=== PATIENT | female | born 1980 | race Caucasian/White ===

== ENCOUNTER 2021-07-06 22:01 | Emergency (ER) | payer OTHER, SELFPAY ==
--- NOTE | ~2021-07-06 | CT_ITS ---
EXAMINATION: CT abdomen pelvis w con DATE: 07/07/2021 00:01 INDICATION: Right upper quadrant abdominal pain and nausea TECHNIQUE: Computed tomography (CT) of the abdomen and pelvis was performed with 100 mL Omnipaque-300 intravenous contrast. Automated exposure control and iterative reconstruction technique were employe d. The dose-length product was 972.17 mGy-cm. COMPARISON: None FINDINGS: Lung bases are clear. Heart size is normal. No pericardial or pleural effusion. Bilateral breast impl ants. Prominent diffuse hepatic steatosis with focal sparing along the gallbladder fossa. Gallbladder , spleen, pancreas, bilateral adrenal glands and kidneys are normal. Fluid throughout the otherwise n ormal-appearing colon consistent with diarrhea. Small bowel and appendix are normal. The decompressed bladder an portions of the deep pelvis are partially obscured by dense metallic streak artifact from bilateral total hip arthroplasties. The uterus is not identified and has likely been surgically rese cted. No free intraperitoneal gas or fluid. No pathologically enlarged abdominal or pelvic lymphadeno nico. IMPRESSION: 1. Nonspecific fluid throughout the colon consistent with diarrhea. Correlate clinically for enteriti s. 2. Diffuse hepatic steatosis. Reviewed, dictated and finalized at location A. IMPRESSION: 1. Nonspecific fluid throughout the colon consistent with diarrhea. Correlate c linically for enteritis. 2. Diffuse hepatic steatosis.
[2021-07-06 22:15] VITALS: BP 150/82; PULSE 112; RESP 18; TEMP 37.2; O2SAT 100
--- NOTE | 2021-07-06 22:27 | ECG_ITS ---
Measurements Intervals [place] Rate: 112 P: 44 IA: 146 QRS: 40 QRSD: 68 T: -20 QT: 336 QTc: 460 Interpretive Statements SINUS TACHYCARDIA POSSIBLE LEFT ATRIAL ENLARGEMENT BORDERLINE ST-T WAVE ABNORMALITY- ANTEROLAT/INF LEADS BASELINE ARTIFACT- V2 ABNORMAL ECG Electronically Signed On 07-07-2021 6:38:16 CDT by Kobe Gomez D.O.
[2021-07-06 22:42] LABS: Basophils Absolute Auto 0.02 K/mm3 (0.00-0.10); Basophils Percent Auto 0.2 % (0.0-1.0); Eosinophils Absolute Auto 0.12 K/mm3 (0.02-0.50); Hematocrit 39.5 % (35.0-49.0); Hemoglobin 13.2 g/dL (12.0-15.0); Immature Granulocyte Absolute 0.03 K/mm3 (0.00-0.00); Immature Granulocyte Percent A 0.3 % (0.0-0.0); Lymphocytes Absolute Auto 3.14 K/mm3 (1.10-4.50); Lymphocytes Percent Auto 27.4 % (18.0-42.0); Mean Corpuscular HGB Conc 33.4 g/dL (32.0-36.0); Mean Corpuscular Hemoglobin 29.5 pg (27.0-31.0); Mean Corpuscular Volume 88.4 fL (78.0-102.0); Mean Platelet Volume 9.3 fl (9.2-11.8); Monocytes Absolute Auto 0.64 K/mm3 (0.10-0.90); Monocytes Percent Auto 5.6 % (2.0-11.0); Neutrophils Absolute Auto 7.5 K/mm3 (1.7-7.2); Neutrophils Percent Auto 65.5 % (50.0-70.0); Platelet Count Result 245 K/mm3 (150-420); Red Blood Count 4.47 M/mm3 (4.20-5.40); White Blood Count 11.5 K/mm3 (4.8-10.8)
--- NOTE | 2021-07-06 22:42 | ED.ABDPAIN ---
HPI - Abdominal Pain General Chief Complaint: Abdominal Pain Stated Complaint: abd pain,side pain Source: patient Mode of arrival: ambulatory Limitations: no limitations History of Present Illness HPI narrative: This is a 40-year-old female with a history of breast cancer, has had history of hysterectomy, the patient presents with a history of abdominal discomfort located right upper quadrant currently it is intermittent and prior to arrival earlier in the day around 7 in the evening she had abdominal pain localized in the right upper quadrant that she rated about 7/10, currently there is some mild nausea her pain level she rates at a 3/10 with no fever chills no dysuria no flank pain no chest pain no shortness of breath. MD elicited complaint: abdominal pain Onset (ago): hour(s) Pain Consistency: intermittent Location: RUQ Severity: mild Pain scale (0-10): 3 Quality: aching Radiation: RUQ and epigastric Exacerbating factors: nothing Relieving factors: nothing Related Data Home Medications Medication Instructions Recorded Confirmed famotidine [Pepcid] 40 mg PO DAILY 07/06/21 07/06/21 metoprolol succinate 50 mg PO DAILY 07/06/21 07/06/21 tamoxifen 20 mg PO DAILY 07/06/21 07/06/21 Allergies Allergy/AdvReac Type Severity Reaction Status Date / Time acetaminophen [From Percocet] Allergy Itching Verified 07/06/21 22:31 amoxicillin Allergy Hives Verified 07/06/21 22:29 azithromycin [From Zithromax] Allergy Other Verified 07/06/21 22:31 oxycodone [From Percocet] Allergy Itching Verified 07/06/21 22:31 Sulfa (Sulfonamide Allergy Swelling Verified 07/06/21 22:31 Antibiotics) of Lip/Tongue/Throat Review of Systems Review of Systems: All systems reviewed & are unremarkable except as noted in HPI and below PMFSH Past Medical History Medical History History of breast cancer Exam Const: General: no acute distress and alert Orientation/consciousness: patient oriented x3 HENMT: Head: normal to inspection Eyes: Conjunctivae: conjunctivae normal Pupils: Equal, round and reactive pupils present Neck: Neck: normal visual inspection Chest: Chest palpation & inspection: normal inspection of the chest Cardio: Rate: regular rate Rhythm: regular rhythm GI: GI Palp: Yes Soft to palpation and Yes Tenderness to palpation present (GI) : General: Yes no CVA tenderness Urinary Catheter: Urinary Catheter: patent and draining Back/Spine/Pelvis: Back: no CVA tenderness Skin: General skin exam: normal color Rashes: no rashes Neuro: General: patient oriented x3 and moves all extremities Extrem: General: normal to inspection Psych: Mental Status: mental status grossly normal Affect: normal affect Course Course Emergency Course: patient receive IV fluids, IV Toradol 30mg and Zofran, CT scan of the abdomen and pelvis reviewed with patient as well as blood work. MDM - Abdominal Pain Lab Data Result diagrams: 07/06/21 22:39 07/06/21 22:39 Labs: Lab Results 07/06/21 07/06/21 07/06/21 Range/Units 22:39 22:39 22:39 WBC Pending RBC Pending Hgb Pending Hct Pending MCV Pending MCH Pending MCHC Pending RDW Pending Plt Count Pending MPV Pending Immature Gran % (Auto) Pending Neut % (Auto) Pending Lymph % (Auto) Pending [place] % (Auto) Pending Eos % (Auto) Pending Baso % (Auto) Pending Lymph # (Auto) Pending [place] # (Auto) Pending Eos # (Auto) Pending Baso # (Auto) Pending Abs Immat Gran (auto) Pending Absolute Neuts (auto) Pending Absolute Nucleated RBC Pending Nucleated RBC % Pending PT Pending INR Pending APTT Pending Sodium Pending Potassium Pending Chloride Pending Carbon Dioxide Pending Anion Gap Pending BUN Pending Creatinine Pending
[2021-07-06 22:56] LABS: INR 0.9; Partial Thromboplastin Time 26.4 SEC (23.90-30.70); Prothrombin Time 9.9 Seconds (9.50-12.10)
[2021-07-06] MEDS: KETOROLAC 30 MG/ML VIAL (*BKC) IV PUSH (22:56)
[2021-07-06] MEDS: SODIUM CHLORIDE 0.9% IV 1,000 ML 999 ML IV CONT (22:57)
[2021-07-06] MEDS: ONDANSETRON INJ 4 MG/2 ML VIAL IV PUSH (22:57)
[2021-07-06 23:28] LABS: Alanine Aminotransferase 60 U/L (6-35); Albumin Level 4.4 g/dL (3.5-5.1); Alkaline Phosphatase 111 U/L (38-126); Anion Gap 10 mmol/L (8-16); Aspartate Amino Transferase 45 U/L (14-36); Bilirubin,Total 0.3 mg/dL (0.2-1.3); Blood Urea Nitrogen 15 mg/dL (7-17); Calcium 9.1 mg/dL (8.4-10.2); Carbon Dioxide 23 mmol/L (22-30); Chloride 108 mmol/L (98-107); Estimated Glomerular Filt Rate > 60; Glucose 109 mg/dL (65-110); Lipase 96 U/L (23-300); Osmolality Calculated 293 mOsm/kg (285-295); Potassium 3.9 mmol/L (3.4-5.0); Sodium 141 mmol/L (137-145)
[2021-07-06 23:35] LABS: Add Urine Microscopic? YES; Appearance Urine Clear (Clear); Bilirubin Urine Negative (Negative); Blood Urine Negative (Negative); Color Urine Yellow (Yellow); Glucose Urine UA Negative (Negative); Ketones Urine 1+ (Negative); Leukocyte Esterase Ur Negative (Negative); Nitrate Urine Negative (Negative); Protein Urine Negative (Negative); Specific Grav Ur >= 1.030 (1.010-1.020); Urobilinogen Urine 0.2 mg/dL (0.2-1.0); pH Urine 5.5 (5.0-8.0)
[2021-07-06 23:43] LABS: Urine Pregnancy Test Negative
[2021-07-06 23:44] LABS: Bacteria Urine Trace /hpf; Mucus Urine Few /lpf; Pregnancy On Board Control Positive; RBC Urine 0-2 /hpf (0-2); Renal Epithelial Cells Urine Rare /hpf; Squamous Epithelial Cell Urine Rare /hpf (Few); WBC Urine 0-3 /hpf (0-3)
[2021-07-06 23:50] LABS: Troponin I < 0.012 ng/mL (0.000-0.034)
[2021-07-07] MEDS: CIPROFLOXACIN 400 MG/D5W 200ML 200 ML 200 MG IVPB (01:39)
[2021-07-07] MEDS: metroNIDAZOLE 500 MG/ISO 100ML 500 MG/100 ML BAG 100 MG IVPB (02:42)
[2021-07-07 04:12] VITALS: BP 123/62; PULSE 88; RESP 17; TEMP 36.6; O2SAT 98
== END 2021-07-07 04:13 | disposition home or self-care (01) ==
PROVIDERS: Emergency Provider Emergency Medicine
DX: K52.9 Noninfective gastroenteritis and colitis, unspecified (principal); K76.0 Fatty (change of) liver, not elsewhere classified
CPT/HCPCS: 36415; 74177; 80053; 81001; 81025; 83605; 83690; 84484; 85025; 85610; 85730; 93005; 96361; 96365; 96367; 96374; 96375; 99284; J0744; J1885; J2405; J7030; Q9967

== ENCOUNTER 2021-11-23 19:30 | Emergency (ER) | payer OTHER, SELFPAY ==
--- NOTE | 2021-11-23 19:40 | ED.SKABFB ---
HPI - Skin/Abscess/Foreign Bdy General Chief complaint: Skin/Abscess/Foreign Body Stated complaint: body rash Time Seen by Provider: 11/23/21 19:42 Source: patient Mode of arrival: ambulatory Limitations: no limitations History of Present Illness HPI narrative: 41-year-old female presented for complaint of hives to stomach, onset 1700. It started as a burning sensation. She denies changes to lotion, soap, detergent, diet or medications. States she noticed 1 small hive to the right lower leg which has improved. Anything for symptoms. She denies lip, tongue, or throat swelling, shortness of breath or wheezing. She endorses itching, denies pain or drainage. Of note, she reports 1 week ago she leaned across the car seat causing pressure against her right breast implant, which caused pain to the right chest wall. She endorses the pain has persisted, worse with sneezing or coughing, also hurts with lifting the right arm. She has not yet followed up with plastic surgeon regarding this. She has not taken anything for pain. She denies change in size or shape to the implant. History of breast cancer, status post bilateral mastectomy. Related Data Home Medications Medication Instructions Recorded Confirmed famotidine 40 mg tablet (Pepcid) 40 mg PO DAILY 07/06/21 11/23/21 metoprolol succinate 50 mg 50 mg PO DAILY 07/06/21 11/23/21 tablet,extended release 24 hr tamoxifen 20 mg tablet 20 mg PO DAILY 07/06/21 11/23/21 cholecalciferol (vitamin D3) 50 50 mcg PO DAILY 11/23/21 11/23/21 mcg (2,000 unit) capsule (Vitamin D3) Allergies Allergy/AdvReac Type Severity Reaction Status Date / Time acetaminophen [From Percocet] Allergy Itching Verified 11/23/21 19:36 amoxicillin Allergy Hives Verified 11/23/21 19:36 azithromycin [From Zithromax] Allergy Other Verified 11/23/21 19:36 oxycodone [From Percocet] Allergy Itching Verified 11/23/21 19:36 Sulfa (Sulfonamide Allergy Swelling Verified 11/23/21 19:36 Antibiotics) of Lip/Tongue/Throat Review of Systems Review of Systems: CONSTITUTIONAL: Denies body aches, fever, chills, or sweats. EYES: Denies visual changes, redness, or discharge. ENT: Denies rhinorrhea, congestion CARDIOVASCULAR: Denies chest pain, palpitations, or edema. RESPIRATORY: Denies cough or dyspnea. GASTROINTESTINAL: Denies abdominal pain, nausea, vomiting, or diarrhea. SKIN: reports rash MUSCULOSKELETAL: reports right chest wall pain; Denies back pain, joint pain, or myalgia. NEUROLOGIC: Denies headache, numbness, tingling, or weakness. [facility] Past Medical History Medical History History of breast cancer Comments At time of signature, I have reviewed and agree with nursing past medical, surgical, social and family history unless otherwise noted. Please see nursing chart for further information. There is no relevant family history pertinent to the presenting complaint Exam Narrative: GENERAL: Well-appearing EYES: conjunctivae clear, and EOMI. ENT: Mucous membranes moist. Oropharynx without edema, erythema or lesions. NECK: Supple. No lymphadenopathy CHEST: Clear to auscultation. Bilateral breasts examined, no bruising, redness, lesions, or significant discrepancy in size; right lateral breast with mild irregular contour HEART: Regular rate and rhythm. SKIN: Warm, dry. Erythematous rash across abdomen, c/w urticaria; nontender no drainage NEURO: Alert and oriented x3. Course Course Emergency Course: Patient is aware of diagnosis, understands and agrees to treatment plan. Anticipatory guidance given. Patient agrees to follow-up as directed and is aware of reasons to seek care at the emergency department. Portions of this record may have been created with voice recognition software Level of Care: Express Care Visit Vital Signs Vital signs: Reviewed MDM - Skin/Abscess/Foreign Bdy MDM Narrative Medical decision britney
[2021-11-23 19:42] VITALS: BP 156/76; PULSE 103; RESP 16; TEMP 37.1; O2SAT 99
== END 2021-11-23 19:56 | disposition home or self-care (01) ==
PROVIDERS: Emergency Provider Nurse Practitioner Family
DX: L50.9 Urticaria, unspecified (principal); R07.89 Other chest pain; Z85.3 Personal history of malignant neoplasm of breast; Z90.13 Acquired absence of bilateral breasts and nipples
CPT/HCPCS: 99213; G0463

== ENCOUNTER 2022-05-01 19:14 | Emergency (ER) | payer BC, SELFPAY ==
--- NOTE | ~2022-05-01 | XR_ITS ---
EXAMINATION: XR chest 2V Exam Date/Time: 05/01/2022 19:25 CDT HISTORY: COUGH, CONGESTION, SOB Comparison: None available. RESULT: Lines, tubes, and devices: Bilateral breast augmentation. Surgical. Clips project over the anterior mediastinum in the lateral view, likely within lateral soft tissues. Lungs and pleura: Scattered reticulonodular opacities, cuffing. Cardiomediastinal silhouette: Stable. Other: No acute osseous or upper abdominal finding. Rounded calcification over the right upper quadr ant may represent a gallstone. IMPRESSION: Pulmonary opacities may represent bronchiolitis, as can be seen with atypical infection, asthma, aspi ration, and small airways disease. Reviewed, dictated and finalized at location K. IMPRESSION: Pulmonary opacities may represent bronchiolitis, as can be seen with atypical i nfection, asthma, aspiration, and small airways disease.
[2022-05-01 19:31] VITALS: BP 137/89; PULSE 123; RESP 16; TEMP 37.6; O2SAT 100
--- NOTE | 2022-05-01 19:37 | ED.URI ---
HPI - URI/Sore Throat General Chief Complaint: Upper Respiratory Infection Stated Complaint: congestion,shortness of breath,cough Source: patient and RN notes reviewed History of Present Illness HPI Narrative: 41-year-old female presents to urgent care with complaints a productive cough, shortness of breath, and congestion. patient states her congestion started on Saturday but this afternoon her symptoms worsened. Patient reports history of pneumonia. Denies any fevers, chills, vomiting, or abdominal pain. Some parts of this dictation were generated by voice recognition software and may contain typographical and/or grammatical inaccuracies. Related Data Allergies Allergy/AdvReac Type Severity Reaction Status Date / Time acetaminophen [From Percocet] Allergy Itching Verified 05/01/22 19:42 amoxicillin Allergy Hives Verified 05/01/22 19:42 azithromycin [From Zithromax] Allergy Other Verified 05/01/22 19:42 oxycodone [From Percocet] Allergy Itching Verified 05/01/22 19:42 Sulfa (Sulfonamide Allergy Swelling Verified 05/01/22 19:42 Antibiotics) of Lip/Tongue/Throat Review of Systems Review of Systems: CONSTITUTIONAL: Denies fever, chills, or sweats. EYES: Denies visual changes, redness, or discharge. ENT: Congestion CARDIOVASCULAR: Denies chest pain, palpitations, or edema. RESPIRATORY: cough and dyspnea. GASTROINTESTINAL: Denies abdominal pain, nausea, vomiting, or diarrhea. GENITOURINARY: Denies dysuria or hematuria. SKIN: Denies rash or itching. MUSCULOSKELETAL: Denies back pain, joint pain, or myalgia. NEUROLOGIC: Denies headache, numbness, or weakness. [facility] Past Medical History Medical History History of breast cancer Comments At the time of my signature, I reviewed and agree with the nursing past medical, surgical, social, and family history. There is no relevant family history pertinent to the patient complaint. Exam Narrative: GENERAL: This is a well-nourished, well-developed patient, in no apparent distress. HEAD: normocephalic, atraumatic. EYES: PERRL. Sclera clear/white. Vision is grossly intact. EARS: External ears normal, auditory canals clear and without drainage, TMs normal without perforation. Hearing grossly intact. NOSE: External nose normal with no obvious nasal discharge, nares without redness, no rhinorrhea. THROAT: Mucous membranes moist, posterior pharynx clear. NECK: Neck supple, non-tender without lymphadenopathy, masses or thyromegaly. CARDIOVASCULAR: tachycardic and rhythm without murmurs, gallops, or rubs. RESPIRATORY: rhonchi bilaterally. SKIN: warm, intact with no suspicious lesions or rash, good texture and turgor. NEURO: awake, alert, and oriented to person, place and time. There were no obvious focal neurologic abnormalities. Course Course Level of Care: Express Care Visit Vital Signs Vital signs: Vital Signs Temperature 99.7 F H 05/01/22 19:31 Pulse Rate 123 H 05/01/22 19:31 Respiratory Rate 16 05/01/22 19:31 Blood Pressure 137/89 05/01/22 19:31 Pulse Oximetry 100 05/01/22 19:31 Temperature 99.7 F H 05/01/22 19:31 Pulse Rate 123 H 05/01/22 19:31 Respiratory Rate 16 05/01/22 19:31 Blood Pressure 137/89 05/01/22 19:31 Pulse Oximetry 100 05/01/22 19:31 reviewed MDM - URI/Sore Throat MDM Narrative Medical decision making narrative: Take antibiotics as directed. May use the inhaler every 4-6 hours as needed for shortness of breath. Go to the emergency department with any new worsening symptoms. Differential Diagnosis Differential diagnosis: Likely upper respiratory infection, viral infection and other ( pneumonia) Imaging Data Radiologist's impression: [facility] [address] [place] [address] XRay Report Signed Patient: Indu Thomson : 1980 MR#: [id number] Age/Sex: 41 / F Acct:GE00
== END 2022-05-01 20:10 | disposition home or self-care (01) ==
PROVIDERS: Emergency Provider Nurse Practitioner Family
DX: J18.9 Pneumonia, unspecified organism (principal); Z85.3 Personal history of malignant neoplasm of breast
CPT/HCPCS: 71046; 99213; G0463

== ENCOUNTER 2022-05-11 14:10 | Outpatient (CLI) | payer BC, SELFPAY ==
--- NOTE | ~2022-05-11 | XR_ITS ---
EXAMINATION: XR chest 2V 05/11/2022 14:51 INDICATION: Follow-up pneumonia PROCEDURE: 2 view COMPARISON: 05/01/2022 FINDINGS: The lungs are clear. The cardiomediastinal silhouette is within normal limits. There are no pleural effusions. There is no pneumothorax suspected. IMPRESSION: 1: NO ACUTE CARDIOPULMONARY DISEASE. Reviewed, dictated and finalized at location A.
== END 2022-05-11 14:11 | disposition home or self-care (01) ==
LOC: CHSIMG 14:15
DX: J18.9 Pneumonia, unspecified organism (principal)
CPT/HCPCS: 71046

== ENCOUNTER 2022-12-18 15:47 | Emergency (ER) | payer BC, SELFPAY ==
--- NOTE | ~2022-12-18 | CT_ITS ---
EXAMINATION: CT abdomen pelvis wo con DATE: 12/18/2022 17:00 INDICATION: Left lower quadrant pain for 3 days TECHNIQUE: Computed tomography (CT) of the abdomen and pelvis was performed without intravenous contr ast. The dose-length product was 968.31 mGy-cm. Automated exposure control and iterative reconstructi on technique were employed. COMPARISON: CT dated 07/06/2021 FINDINGS: There is dependent atelectasis. Bilateral breast implants. Heart size normal. No significan t pleural or pericardial effusion. Fatty infiltration of the liver. Gallbladder is present. The spleen, pancreas, adrenal glands are unremarkable. Kidneys are within normal limits. No hydroneph rosis or stones. There are bilateral hip arthroplasties creating streak artifact limiting evaluation of the lower pelvis. There is inflammatory change in the left pelvis adjacent to the sigmoid colon wh ich may represent acute diverticulitis or epiploic appendagitis. No significant vascular abnormality. Gallbladder is present. No lymphadenopathy. No free air. IMPRESSION: 1. Inflammation and fluid left pelvis adjacent to the sigmoid colon which may represent acute diverti culitis or epiploic appendagitis. 2: Fatty infiltration of the liver. Reviewed, dictated and finalized at location A. IMPRESSION: 1. Inflammation and fluid left pelvis adjacent to the sigmoid colon which may r epresent acute diverticulitis or epiploic appendagitis. 2: Fatty infiltration of the liver.
[2022-12-18 15:49] VITALS: BP 171/69; PULSE 102; RESP 18; TEMP 36.7; O2SAT 100
--- NOTE | 2022-12-18 16:08 | ED.ABDPAIN ---
HPI - Abdominal Pain General Chief Complaint: Abdominal Pain Stated Complaint: ABDOMINAL PAIN Time Seen by Provider: 12/18/22 15:59 Source: patient Mode of arrival: ambulatory Limitations: no limitations History of Present Illness HPI narrative: Patient is a 42-year-old female with extensive past medical history here with left lower quadrant abdominal pain for the past 3 days. She had a bowel movement this morning that was normal. MD elicited complaint: abdominal pain Pertinent past history: other ( See past medical history; no history of diverticulitis) Onset (ago): day(s) (3) Pain Consistency: constant Location: LLQ Severity: moderate Pain scale (0-10): 7 Quality: cramping and sharp Radiation: none Migration to: no migration Exacerbating factors: nothing Relieving factors: nothing Context: confirms other ( pain started after eating taco salad 3 nights ago) Associated symptoms: denies other symptoms Related Data Home Medications Medication Instructions Recorded Confirmed metoprolol succinate 50 mg 50 mg PO HS 12/18/22 12/18/22 tablet,extended release 24 hr pantoprazole 40 mg tablet,delayed 40 mg PO QAM 12/18/22 12/18/22 release tamoxifen 20 mg tablet 20 mg PO DAILY 12/18/22 12/18/22 Allergies Allergy/AdvReac Type Severity Reaction Status Date / Time acetaminophen [From Percocet] Allergy Itching Verified 12/18/22 15:52 amoxicillin Allergy Hives Verified 12/18/22 15:52 azithromycin [From Zithromax] Allergy Other Verified 12/18/22 15:52 cefuroxime Allergy Rash Verified 12/18/22 15:52 clindamycin Allergy Rash Verified 12/18/22 15:52 oxycodone [From Percocet] Allergy Itching Verified 12/18/22 15:52 Sulfa (Sulfonamide Allergy Swelling Verified 12/18/22 15:52 Antibiotics) of Lip/Tongue/Throat Review of Systems Review of Systems: All systems reviewed & are unremarkable except as noted in HPI and below Constitutional: Constitutional: Reports no additional constitutional complaints Eyes: Eyes: Reports no additional eye complaints ENT: Reports system reviewed and no additional complaints, except as documented Cardiovascular: Cardiovascular: Reports no additional cardiovascular complaints Respiratory: Respiratory: Reports no additional respiratory complaints Gastrointestinal: Gastrointestinal: Reports no additional gastrointestinal complaints Genitourinary: Genitourinary: Reports no additional female genitourinary complaints Musculoskeletal: Musculoskeletal: Reports no additional musculoskeletal complaints Integumentary/Breasts: Skin/Breast: Reports system reviewed and no additional complaints, except as docu Neurologic: Reports system reviewed and no additional complaints, except as documented Psychiatric: Psychiatric: Reports no additional psychiatric complaints Endocrine: Endocrine: Reports no additional endocrine complaints Hematologic/Lymphatic: Hematologic/Lymphatic: Reports no additional hematologic/lymphatic complaints Allergic/Immunologic: Allergic/Immunologic: Reports no additional allergic/immunologic complaints PMFSH Past Medical History Medical History History of breast cancer Exam Const: General: healthy appearing Nutritional Appearance: well nourished Orientation/consciousness: patient oriented x3 HENMT: Head: normal to inspection Ears: external ears normal Face/Nose/Sinus: Normal external nose present Eyes: Conjunctivae: conjunctivae normal Pupils: Equal, round and reactive pupils present EOM: EOMs intact bilaterally Neck: Neck: normal visual inspection Chest: Chest palpation & inspection: normal inspection of the chest Resp: Effort & Inspection: normal respiratory effort Auscultation: clear to auscultation bilaterally, no crackles and no rales Cardio: Rate: regular rate Rhythm: regular rhythm Heart sounds: no murmurs GI: Inspection: non-distended GI Palp: Yes Soft to palpation, Yes Tendern
[2022-12-18 16:26] LABS: Basophils Absolute Auto 0.02 K/mm3 (0.00-0.10); Basophils Percent Auto 0.2 % (0.0-1.0); Eosinophils Absolute Auto 0.06 K/mm3 (0.02-0.50); Eosinophils Percent Auto 0.6 % (1.0-6.0); Hematocrit 38.9 % (35.0-49.0); Hemoglobin 12.6 g/dL (12.0-15.0); Immature Granulocyte Absolute 0.02 K/mm3 (0.00-0.00); Immature Granulocyte Percent A 0.2 % (0.0-0.0); Lymphocytes Absolute Auto 3.06 K/mm3 (1.10-4.50); Lymphocytes Percent Auto 32.4 % (18.0-42.0); Mean Corpuscular HGB Conc 32.4 g/dL (32.0-36.0); Mean Corpuscular Hemoglobin 29.9 pg (27.0-31.0); Mean Corpuscular Volume 92.2 fL (78.0-102.0); Mean Platelet Volume 9.3 fl (9.2-11.8); Monocytes Absolute Auto 0.63 K/mm3 (0.10-0.90); Monocytes Percent Auto 6.7 % (2.0-11.0); Neutrophils Absolute Auto 5.6 K/mm3 (1.7-7.2); Neutrophils Percent Auto 59.9 % (50.0-70.0); Platelet Count Result 228 K/mm3 (150-420); Red Blood Count 4.22 M/mm3 (4.20-5.40); Red Cell Distribution Width 13.1 % (11.6-14.4); White Blood Count 9.4 K/mm3 (4.8-10.8)
[2022-12-18 16:31] LABS: Appearance Urine Clear (Clear); Bilirubin Urine Negative (Negative); Blood Urine Negative (Negative); Color Urine Light Yellow (Yellow); Glucose Urine UA Negative (Negative); Ketones Urine 1+ (Negative); Leukocyte Esterase Ur 1+ LEU/UL (Negative); Nitrate Urine Negative (Negative); Protein Urine Negative (Negative); Specific Grav Ur 1.025 (1.010-1.020); Urobilinogen Urine 0.2 mg/dL (0.2-1.0); pH Urine 5.5 (5.0-8.0)
[2022-12-18 16:35] LABS: Add Urine Microscopic? YES; Bacteria Urine 1+ /hpf; RBC Urine None seen /hpf (0-2); Renal Epithelial Cells Urine Few /hpf; Squamous Epithelial Cell Urine Few /hpf (Few)
[2022-12-18 16:42] LABS: Alanine Aminotransferase 58 U/L (14-59); Albumin Level 3.7 g/dL (3.4-5.0); Alkaline Phosphatase 88 U/L (46-116); Anion Gap 13 mmol/L (8-16); Aspartate Amino Transferase 23 U/L (15-37); Bilirubin,Total 0.5 mg/dL (0.00-1.00); Blood Urea Nitrogen 12 mg/dL (7-18); Calcium 9.1 mg/dL (8.5-10.1); Carbon Dioxide 24 mmol/L (21-32); Chloride 102 mmol/L (98-108); Estimated CRCL calculation 94 ml/min; Estimated Glomerular Filt Rate > 60; Glucose 89 mg/dL (70-99); Lipase 39 U/L (16-77); Osmolality Calculated 286 mOsm/kg (285-295); Potassium 3.8 mmol/L (3.5-5.1); Sodium 139 mmol/L (136-145); Total Protein 7.5 g/dL (6.4-8.2)
[2022-12-18 17:46] VITALS: BP 130/82; PULSE 88; RESP 18; TEMP 36.7; O2SAT 98
--- NOTE | 2022-12-20 12:14 | PC.NURSE ---
Final urine culture report: no growth, superficial bacteria, no change in treatment or further action needed per ERP Dr. sutherland.
== END 2022-12-18 17:35 | disposition home or self-care (01) ==
PROVIDERS: Emergency Provider Emergency Medicine
DX: K57.92 Diverticulitis of intestine, part unspecified, without perforation or abscess without bleeding (principal); Z79.899 Other long term (current) drug therapy; Z85.3 Personal history of malignant neoplasm of breast
CPT/HCPCS: 36415; 74176; 80053; 81001; 83690; 85025; 87086; 87088; 99284

== ENCOUNTER 2022-12-20 07:17 | Emergency (ER) | payer BC, SELFPAY ==
--- NOTE | ~2022-12-20 | CT_ITS ---
EXAMINATION: CT abdomen pelvis w con DATE: 12/20/2022 08:27 INDICATION: Left lower quadrant abdominal pain. TECHNIQUE: Computed tomography (CT) of the abdomen and pelvis was performed with 100 mL Omnipaque 350 intravenous contrast. Automated exposure control and iterative reconstruction technique were employe d. The dose-length product was 761.63 mGy-cm. COMPARISON: CT abdomen and pelvis 12/18/2022 FINDINGS: The visualized portions of the lung bases demonstrate mild atelectasis. No pleural effusion . The heart size is normal. No pericardial effusion. Bilateral breast implants are noted. There is di ffuse hepatic steatosis. The gallbladder is normal in size. The spleen, pancreas, adrenal glands, and kidneys are normal. There are no dilated loops of bowel. There is fat stranding adjacent to sigmoid colon around an epiploic appendage, consistent with epiploic appendagitis. There are no dilated loops of bowel. The appendix is normal. There is a small sliding hiatal hernia. There are no pathologicall y enlarged lymph nodes. There is no free intraperitoneal fluid. There are total bilateral hip arthrop lasties. IMPRESSION: 1. Epiploic appendagitis of sigmoid colon, stable from 12/18/22. Reviewed, dictated and finalized at location E.
--- NOTE | 2022-12-20 07:31 | ED.ABDPAIN ---
HPI - Abdominal Pain General Chief Complaint: Abdominal Pain Stated Complaint: abd pain Time Seen by Provider: 12/20/22 07:20 Source: patient and family Mode of arrival: ambulatory Limitations: no limitations History of Present Illness HPI narrative: this is a 42-year-old female who presents with abdominal pain left lower quadrant was seen in the emergency department on Saturday and treated for diverticulitis, continues to take her antibiotics was on a clear liquid diet and had a few crackers which caused her abdominal pain to become more intense. Patient has a history of breast cancer currently on tamoxifen, currently there is no fever chills no diarrhea or constipation, the patient is nauseated with no episode of vomiting no flank pain no dysuria or hematuria. MD elicited complaint: abdominal pain Pertinent past history: diverticulitis Onset (ago): day(s) Pain Consistency: constant Location: LLQ Severity: severe Pain scale (0-10): 10 Quality: fullness and sharp Radiation: none Migration to: no migration Exacerbating factors: eating and vomiting Relieving factors: nothing Related Data Home Medications Medication Instructions Recorded Confirmed metoprolol succinate 50 mg 50 mg PO HS 12/18/22 12/20/22 tablet,extended release 24 hr pantoprazole 40 mg tablet,delayed 40 mg PO QAM 12/18/22 12/20/22 release tamoxifen 20 mg tablet 20 mg PO DAILY 12/18/22 12/20/22 cholecalciferol (vitamin D3) 50 50 mcg PO DAILY 12/20/22 12/20/22 mcg (2,000 unit) capsule Allergies Allergy/AdvReac Type Severity Reaction Status Date / Time acetaminophen [From Percocet] Allergy Itching Verified 12/20/22 07:52 amoxicillin Allergy Hives Verified 12/20/22 07:52 azithromycin [From Zithromax] Allergy Other Verified 12/20/22 07:52 cefuroxime Allergy Rash Verified 12/20/22 07:52 clindamycin Allergy Rash Verified 12/20/22 07:52 oxycodone [From Percocet] Allergy Itching Verified 12/20/22 07:52 Sulfa (Sulfonamide Allergy Swelling Verified 12/20/22 07:52 Antibiotics) of Lip/Tongue/Throat sulfamethoxazole Allergy Swelling Verified 12/20/22 07:55 [From of Sulfamethoxazole-Trimethoprim] Lip/Tongue/Throat trimethoprim Allergy Swelling Verified 12/20/22 07:55 [From of Sulfamethoxazole-Trimethoprim] Lip/Tongue/Throat Review of Systems Review of Systems: All systems reviewed & are unremarkable except as noted in HPI and below PMFSH Past Medical History Medical History History of breast cancer Exam Const: General: healthy appearing, no acute distress and alert Nutritional Appearance: well nourished Orientation/consciousness: patient oriented x3 Limitations: no limitations HENMT: Head: normal to inspection Neck: Neck: normal visual inspection and no lymphadenopathy Chest: Chest palpation & inspection: normal inspection of the chest Resp: Effort & Inspection: normal respiratory effort Auscultation: clear to auscultation bilaterally Cardio: Rate: regular rate Rhythm: regular rhythm GI: GI Palp: Yes Soft to palpation and Yes Tenderness to palpation present (GI) Auscultation: normal bowel sounds : General: Yes bladder normal to palpation Back/Spine/Pelvis: Back: no CVA tenderness Skin: General skin exam: normal color Rashes: no rashes Wounds: no wounds Neuro: General: patient oriented x3 and moves all extremities Extrem: General: normal to inspection Psych: Mental Status: mental status grossly normal Affect: normal affect Course Course Emergency Course: patient received IV Toradol and which pain level has improved from 8 down to 6 and IV Zofran, CT scan was read reviewed from previous visit and current visit which showed epiploic appendages appendagitis, urine shows urinary tract infection rest of her blood work performed shows normal white blood cell count and CMP within normal limits. Advised patient to continue her current antibio
[2022-12-20] MEDS: SODIUM CHLORIDE 0.9% IV 1,000 ML 999 ML IV CONT (07:42)
[2022-12-20 07:43] LABS: Basophils Absolute Auto 0.02 K/mm3 (0.00-0.10); Basophils Percent Auto 0.3 % (0.0-1.0); Eosinophils Absolute Auto 0.08 K/mm3 (0.02-0.50); Eosinophils Percent Auto 1.1 % (1.0-6.0); Hematocrit 40.5 % (35.0-49.0); Hemoglobin 13.5 g/dL (12.0-15.0); Immature Granulocyte Absolute 0.02 K/mm3 (0.00-0.00); Immature Granulocyte Percent A 0.3 % (0.0-0.0); Lymphocytes Absolute Auto 2.61 K/mm3 (1.10-4.50); Lymphocytes Percent Auto 35.8 % (18.0-42.0); Mean Corpuscular HGB Conc 33.3 g/dL (32.0-36.0); Mean Corpuscular Hemoglobin 29.5 pg (27.0-31.0); Mean Corpuscular Volume 88.6 fL (78.0-102.0); Mean Platelet Volume 9.4 fl (9.2-11.8); Monocytes Absolute Auto 0.67 K/mm3 (0.10-0.90); Monocytes Percent Auto 9.2 % (2.0-11.0); Neutrophils Absolute Auto 3.9 K/mm3 (1.7-7.2); Neutrophils Percent Auto 53.3 % (50.0-70.0); Platelet Count Result 266 K/mm3 (150-420); Red Blood Count 4.57 M/mm3 (4.20-5.40); Red Cell Distribution Width 12.8 % (11.6-14.4); White Blood Count 7.3 K/mm3 (4.8-10.8)
[2022-12-20] MEDS: KETOROLAC 30 MG/ML VIAL (*BKC) IV PUSH (07:43)
[2022-12-20] MEDS: ONDANSETRON INJ 4 MG/2 ML VIAL IV PUSH (07:43)
[2022-12-20 07:51] VITALS: BP 166/70; PULSE 102; RESP 18; TEMP 35.8; O2SAT 99
[2022-12-20 07:59] LABS: Alanine Aminotransferase 70 U/L (14-59); Albumin Level 3.9 g/dL (3.4-5.0); Alkaline Phosphatase 82 U/L (46-116); Anion Gap 13 mmol/L (8-16); Aspartate Amino Transferase 39 U/L (15-37); Bilirubin,Total 0.7 mg/dL (0.00-1.00); Blood Urea Nitrogen 11 mg/dL (7-18); Calcium 9.6 mg/dL (8.5-10.1); Carbon Dioxide 25 mmol/L (21-32); Chloride 102 mmol/L (98-108); Estimated Glomerular Filt Rate > 60; Glucose 108 mg/dL (70-99); Lipase 37 U/L (16-77); Osmolality Calculated 290 mOsm/kg (285-295); Potassium 4.1 mmol/L (3.5-5.1); Sodium 140 mmol/L (136-145)
[2022-12-20 08:05] LABS: Prothrombin Time 10.5 Seconds (9.64-11.0)
[2022-12-20 08:06] LABS: Lactic Acid Reflex 1.5 mmol/L (0.4-2.0)
[2022-12-20 08:48] LABS: Appearance Urine Clear (Clear); Bilirubin Urine Negative (Negative); Blood Urine Negative (Negative); Color Urine Yellow (Yellow); Glucose Urine UA Negative (Negative); Ketones Urine 1+ (Negative); Leukocyte Esterase Ur 1+ LEU/UL (Negative); Nitrate Urine Negative (Negative); Protein Urine Negative (Negative); Urobilinogen Urine 0.2 mg/dL (0.2-1.0)
[2022-12-20 08:53] LABS: Add Urine Microscopic? YES; Bacteria Urine 1+ /hpf; Mucus Urine Moderate /lpf; RBC Urine 0-2 /hpf (0-2); Squamous Epithelial Cell Urine Moderate /hpf (Few)
[2022-12-20 10:01] VITALS: BP 148/87; PULSE 93; RESP 18; TEMP 36.2; O2SAT 96
--- NOTE | 2022-12-20 10:27 | PC.NURSE ---
On 12/20/22, the student, [KIRBY LOCKE ], provided care and completed [facility] documentation on this patient. I have reviewed the student's documentation and agree with the findings.
--- NOTE | 2022-12-22 14:26 | PC.NURSE ---
final urine culture reviewed. no growth . no change in plan of care.
== END 2022-12-20 10:00 | disposition home or self-care (01) ==
PROVIDERS: Emergency Provider Emergency Medicine
DX: K63.89 Other specified diseases of intestine (principal); Z79.899 Other long term (current) drug therapy; Z85.3 Personal history of malignant neoplasm of breast
CPT/HCPCS: 36415; 74177; 80053; 81001; 83605; 83690; 85025; 85610; 85730; 87086; 96361; 96374; 96375; 99284; J1885; J2405; J7030; Q9967

== ENCOUNTER 2023-02-02 23:06 | Emergency (ER) | payer BC, SELFPAY ==
--- NOTE | ~2023-02-02 | XR_ITS ---
EXAMINATION: XR chest 1V portable 02/02/2023 23:32 INDICATION: Cough with shortness of breath PROCEDURE: AP portable chest COMPARISON: 05/11/2022 FINDINGS: The lungs are clear. The cardiomediastinal silhouette is within normal limits. There are no pleural effusions. There is no pneumothorax suspected. IMPRESSION: 1: NO ACUTE CARDIOPULMONARY DISEASE. Reviewed, dictated and finalized at location A. E DELIVERY DRIVER
[2023-02-02 23:09] VITALS: BP 147/91; PULSE 127; RESP 20; TEMP 36.9; O2SAT 99
--- NOTE | 2023-02-02 23:13 | ED.EAR ---
HPI - Ear Problem General Chief complaint: Ear Stated complaint: ear pain, congestion Time Seen by Provider: 02/02/23 23:13 Source: patient Mode of arrival: ambulatory Limitations: no limitations History of Present Illness HPI Narrative: 42 old with a history of breast 5 ago, asthma with last exacerbation in April of this year, history of pneumonia, Tachycardia on metoprolol, developed cough and congestion for which she went to urgent care 2 days ago and tested negative for influenza / COVID and strep. Subsequently she has had -- cough with mucopurulent sputum -- occasional shortness of breath -- an hour ago she developed acute right ear pain. no ear discharge. No fever or chills. No chest pain no nausea/ vomiting /abdominal pain or diarrhea. No dysuria or hematuria. MD Complaint: ear pain Location: right ear Duration: constant Severity: severe Relieving factors: nothing Exacerbating factors: nothing Discharge from ear: Reports no Treatment prior to arrival: none Related Data Home Medications Medication Instructions Recorded Confirmed metoprolol succinate 50 mg 50 mg PO HS 12/18/22 12/20/22 tablet,extended release 24 hr pantoprazole 40 mg tablet,delayed 40 mg PO QAM 12/18/22 12/20/22 release tamoxifen 20 mg tablet 20 mg PO DAILY 12/18/22 12/20/22 cholecalciferol (vitamin D3) 50 50 mcg PO DAILY 12/20/22 12/20/22 mcg (2,000 unit) capsule Allergies Allergy/AdvReac Type Severity Reaction Status Date / Time acetaminophen [From Percocet] Allergy Itching Verified 02/02/23 23:13 amoxicillin Allergy Hives Verified 02/02/23 23:13 azithromycin [From Zithromax] Allergy Other Verified 02/02/23 23:13 cefuroxime Allergy Rash Verified 02/02/23 23:13 clindamycin Allergy Rash Verified 02/02/23 23:13 oxycodone [From Percocet] Allergy Itching Verified 02/02/23 23:13 Sulfa (Sulfonamide Allergy Swelling Verified 02/02/23 23:13 Antibiotics) of Lip/Tongue/Throat sulfamethoxazole Allergy Swelling Verified 02/02/23 23:13 [From of Sulfamethoxazole-Trimethoprim] Lip/Tongue/Throat trimethoprim Allergy Swelling Verified 02/02/23 23:13 [From of Sulfamethoxazole-Trimethoprim] Lip/Tongue/Throat Review of Systems Review of Systems: All systems reviewed & are unremarkable except as noted in HPI and below Constitutional: Constitutional: Reports as per HPI and Reports no additional constitutional complaints Eyes: Eyes: Reports as per HPI and Reports no additional eye complaints ENT: Reports system reviewed and no additional complaints, except as documented and Reports as per HPI Cardiovascular: Cardiovascular: Reports as per HPI and Reports no additional cardiovascular complaints Respiratory: Respiratory: Reports as per HPI, Reports no additional respiratory complaints and Reports cough Gastrointestinal: Gastrointestinal: Reports as per HPI and Reports no additional gastrointestinal complaints Genitourinary: Genitourinary: Reports no additional female genitourinary complaints and Reports as per HPI Musculoskeletal: Musculoskeletal: Reports no additional musculoskeletal complaints and Reports as per HPI Integumentary/Breasts: Skin/Breast: Reports system reviewed and no additional complaints, except as docu and Reports as per HPI Neurologic: Reports system reviewed and no additional complaints, except as documented and Reports as per HPI Psychiatric: Psychiatric: Reports no additional psychiatric complaints and Reports as per HPI Endocrine: Endocrine: Reports no additional endocrine complaints and Reports as per HPI Hematologic/Lymphatic: Hematologic/Lymphatic: Reports no additional hematologic/lymphatic complaints and Reports as per HPI Allergic/Immunologic: Allergic/Immunologic: Reports no additional allergic/immunologic complaints and Reports as per HPI PMF Past Medical History Medical History (Updated 02/02/23 @ 23:43 by Yair Nash MD) Asthma exacerbation in COPD History
[2023-02-02] MEDS: methylPREDNISolone SOD SUCC 125 MG VIAL IM (23:57)
[2023-02-02] MEDS: DOXYCYCLINE HYCLATE 100 MG TABLET PO (23:57)
== END 2023-02-03 00:23 | disposition home or self-care (01) ==
LOC: CHSED 23:45
PROVIDERS: Emergency Provider Internal Medicine Critical Care Medicine
DX: J06.9 Acute upper respiratory infection, unspecified (principal); H69.91 Unspecified Eustachian tube disorder, right ear; J20.9 Acute bronchitis, unspecified; J45.909 Unspecified asthma, uncomplicated; Z85.3 Personal history of malignant neoplasm of breast
CPT/HCPCS: 71045; 96372; 99283; A9270; J2930

== ENCOUNTER 2023-02-09 06:27 | Emergency (ER) | payer BC, SELFPAY ==
--- NOTE | ~2023-02-09 | XR_ITS ---
XR hip LT min 2V DATE: 02/09/2023 06:54 INDICATION: Left hip pain. No known injury. TECHNIQUE: AP and lateral views COMPARISON: None FINDINGS: Status post left hip arthroplasty. No fracture, dislocation, periosteal reaction or bone de struction is detected. IMPRESSION: Left hip arthroplasty; no fracture or dislocation or other significant abnormality Reviewed, dictated and finalized at location A. EMENTATION MANAGER IMPRESSION: Left hip arthroplasty; no fracture or dislocation or other signific ant abnormality
--- NOTE | 2023-02-09 06:36 | ED.LOWEXIN ---
HPI - Extremity Injury (Lower) General Chief Complaint: Extremity Problem,Nontraumatic Stated Complaint: generalized pain Time Seen by Provider: 02/09/23 06:33 Source: patient Mode of arrival: ambulatory Limitations: no limitations History of Present Illness HPI Narrative: Patient is a 42-year-old female with left hip pain extending from her left hip to her left knee. Pain woke her up from sleep and she came to the ER at this time for further workup. She significant for breast cancer in 2018. She is significant for bilateral hip replacements due to avascular necrosis. She has also recently been on prednisone for bronchitis. No injury. Also she had left hip postoperative arthroplasty infection. Onset (ago): hour(s) (3) Place: home Severity: moderate Severity scale (1-10): 6 Relieving factors: nothing Exacerbating factors: nothing Other symptoms: none Related Data Home Medications Medication Instructions Recorded Confirmed metoprolol succinate 50 mg 50 mg PO HS 12/18/22 02/09/23 tablet,extended release 24 hr pantoprazole 40 mg tablet,delayed 40 mg PO QAM 12/18/22 02/09/23 release tamoxifen 20 mg tablet 20 mg PO DAILY 12/18/22 02/09/23 cholecalciferol (vitamin D3) 50 50 mcg PO DAILY 12/20/22 02/09/23 mcg (2,000 unit) capsule Allergies Allergy/AdvReac Type Severity Reaction Status Date / Time acetaminophen [From Percocet] Allergy Itching Verified 02/09/23 07:06 amoxicillin Allergy Hives Verified 02/09/23 07:06 azithromycin [From Zithromax] Allergy Other Verified 02/09/23 07:06 cefuroxime Allergy Rash Verified 02/09/23 07:06 clindamycin Allergy Rash Verified 02/09/23 07:06 oxycodone [From Percocet] Allergy Itching Verified 02/09/23 07:06 Sulfa (Sulfonamide Allergy Swelling Verified 02/09/23 07:06 Antibiotics) of Lip/Tongue/Throat sulfamethoxazole Allergy Swelling Verified 02/09/23 07:06 [From of Sulfamethoxazole-Trimethoprim] Lip/Tongue/Throat trimethoprim Allergy Swelling Verified 02/09/23 07:06 [From of Sulfamethoxazole-Trimethoprim] Lip/Tongue/Throat Review of Systems Review of Systems: All systems reviewed & are unremarkable except as noted in HPI and below Constitutional: Constitutional: Reports no additional constitutional complaints Eyes: Eyes: Reports no additional eye complaints ENT: Reports system reviewed and no additional complaints, except as documented Cardiovascular: Cardiovascular: Reports no additional cardiovascular complaints Respiratory: Respiratory: Reports no additional respiratory complaints Gastrointestinal: Gastrointestinal: Reports no additional gastrointestinal complaints Genitourinary: Genitourinary: Reports no additional female genitourinary complaints Musculoskeletal: Musculoskeletal: Reports no additional musculoskeletal complaints Integumentary/Breasts: Skin/Breast: Reports system reviewed and no additional complaints, except as docu Neurologic: Reports system reviewed and no additional complaints, except as documented Psychiatric: Psychiatric: Reports no additional psychiatric complaints Endocrine: Endocrine: Reports no additional endocrine complaints Hematologic/Lymphatic: Hematologic/Lymphatic: Reports no additional hematologic/lymphatic complaints Allergic/Immunologic: Allergic/Immunologic: Reports no additional allergic/immunologic complaints PMFSH Past Medical History Medical History Asthma exacerbation in COPD History of breast cancer Tachycardia Social History Social History Social History: nonsmoker Exam Const: General: healthy appearing Nutritional Appearance: well nourished Orientation/consciousness: patient oriented x3 HENMT: Head: normal to inspection Ears: external ears normal Face/Nose/Sinus: Normal external nose present Eyes: Conjunctivae: conjunctivae normal Pupils: Equal, round and
[2023-02-09 06:40] VITALS: BP 130/70; PULSE 90; RESP 20; TEMP 36.6; O2SAT 100
[2023-02-09 07:18] LABS: Hematocrit 42.9 % (35.0-49.0); Hemoglobin 13.4 g/dL (12.0-15.0); Mean Corpuscular HGB Conc 31.2 g/dL (32.0-36.0); Mean Corpuscular Hemoglobin 29.8 pg (27.0-31.0); Mean Corpuscular Volume 95.3 fL (78.0-102.0); Mean Platelet Volume 8.8 fl (9.2-11.8); Platelet Count Result 297 K/mm3 (150-420); Red Cell Distribution Width 13.2 % (11.6-14.4); White Blood Count 10.2 K/mm3 (4.8-10.8)
[2023-02-09 07:33] LABS: Alanine Aminotransferase 84 U/L (14-59); Albumin Level 3.5 g/dL (3.4-5.0); Alkaline Phosphatase 113 U/L (46-116); Anion Gap 5 mmol/L (8-16); Aspartate Amino Transferase 47 U/L (15-37); Bilirubin,Total 0.3 mg/dL (0.00-1.00); Blood Urea Nitrogen 22 mg/dL (7-18); Calcium 8.6 mg/dL (8.5-10.1); Carbon Dioxide 32 mmol/L (21-32); Chloride 103 mmol/L (98-108); Creatine Kinase 33 U/L (26-192); Estimated CRCL calculation 61 ml/min; Estimated Glomerular Filt Rate 50; Glucose 100 mg/dL (70-99); Magnesium 2.1 mg/dL (1.8-2.4); Osmolality Calculated 293 mOsm/kg (285-295); Potassium 4.2 mmol/L (3.5-5.1); Sodium 140 mmol/L (136-145); Total Protein 6.9 g/dL (6.4-8.2)
[2023-02-09 07:34] LABS: Band Neutrophils Percent 0 % (0-6); Neutrophils Absolute Manual 4.08 K/mm3 (1.7-7.2); Neutrophils Percent Manual 40 % (46-73); Total Cells Counted 100
[2023-02-09 07:35] LABS: Basophils Percent Manual 0 % (0-1); Eosinophils Percent Manual 1 % (1-6); Lymphocytes Percent Manual 51 % (18-44); Metamyelocytes Percent 0 %; Monocytes Absolute Manual 0.61 K/mm3 (0.1-0.90); Monocytes Percent Manual 6 % (3-9); Myelocytes Percent 2 %; Platelet Estimate Adequate (Adequate)
[2023-02-09 07:51] LABS: D Dimer < 0.19 mg/L (0.19-0.50)
[2023-02-09 08:00] VITALS: BP 117/66; PULSE 82; RESP 17; O2SAT 97
[2023-02-09 08:05] LABS: INR 0.9; Partial Thromboplastin Time 24.5 SEC (23.90-30.70); Prothrombin Time 10.2 Seconds (9.50-12.10)
[2023-02-09 08:23] VITALS: BP 117/66; PULSE 82; RESP 17; TEMP 36.6; O2SAT 97
== END 2023-02-09 08:23 | disposition home or self-care (01) ==
PROVIDERS: Emergency Medicine; Emergency Provider Emergency Medicine
DX: M25.562 Pain in left knee (principal); Z79.899 Other long term (current) drug therapy; Z85.3 Personal history of malignant neoplasm of breast; Z96.643 Presence of artificial hip joint, bilateral
CPT/HCPCS: 36415; 73502; 80053; 82550; 83735; 85025; 85380; 85610; 85730; 99283

== ENCOUNTER 2023-02-27 16:05 | Emergency (ER) | payer BC, SELFPAY ==
[2023-02-27 16:10] VITALS: BP 140/72; PULSE 91; RESP 20; TEMP 37.2; O2SAT 100
--- NOTE | 2023-02-27 16:25 | ED.URI ---
HPI - URI/Sore Throat General Chief Complaint: Upper Respiratory Infection Stated Complaint: ear ache/congestion/covid + Source: patient Mode of arrival: ambulatory Limitations: no limitations History of Present Illness HPI Narrative: 42-year-old female with a history of breast cancer status post bilateral mastectomy, bilateral hip replacement for avascular necrosis of the hip, asthma with recently diagnosed COVID presents to the ER with a 5 day history of -- bilateral ear pain and decreased hearing. The patient has had 2 rounds of antibiotics for her ear along with steroids. -- Tested positive for COVID on 02/23/2022. -- Nonproductive cough -- body ache -- pain on the right medial knee which is tender on palpation no fever. MD elicited complaint: cough Pertinent past history: asthma Onset (ago): day(s) ( Five days) Consistency: constant Severity: mild Able to tolerate fluids by mouth: Yes Exacerbating factors: nothing Relieving factors: nothing Associated symptoms: denies other symptoms, sore throat and cough Treatments prior to arrival: none Related Data Home Medications Medication Instructions Recorded Confirmed metoprolol succinate 50 mg 50 mg PO HS 12/18/22 02/09/23 tablet,extended release 24 hr pantoprazole 40 mg tablet,delayed 40 mg PO QAM 12/18/22 02/09/23 release tamoxifen 20 mg tablet 20 mg PO DAILY 12/18/22 02/09/23 cholecalciferol (vitamin D3) 50 50 mcg PO DAILY 12/20/22 02/09/23 mcg (2,000 unit) capsule Allergies Allergy/AdvReac Type Severity Reaction Status Date / Time acetaminophen [From Percocet] Allergy Itching Verified 02/09/23 07:06 amoxicillin Allergy Hives Verified 02/09/23 07:06 azithromycin [From Zithromax] Allergy Other Verified 02/09/23 07:06 cefuroxime Allergy Rash Verified 02/09/23 07:06 clindamycin Allergy Rash Verified 02/09/23 07:06 oxycodone [From Percocet] Allergy Itching Verified 02/09/23 07:06 Sulfa (Sulfonamide Allergy Swelling Verified 02/09/23 07:06 Antibiotics) of Lip/Tongue/Throat sulfamethoxazole Allergy Swelling Verified 02/09/23 07:06 [From of Sulfamethoxazole-Trimethoprim] Lip/Tongue/Throat trimethoprim Allergy Swelling Verified 02/09/23 07:06 [From of Sulfamethoxazole-Trimethoprim] Lip/Tongue/Throat Review of Systems Review of Systems: All systems reviewed & are unremarkable except as noted in HPI and below Constitutional: Constitutional: Reports as per HPI and Reports no additional constitutional complaints Eyes: Eyes: Reports as per HPI and Reports no additional eye complaints ENT: Reports system reviewed and no additional complaints, except as documented and Reports as per HPI Cardiovascular: Cardiovascular: Reports as per HPI and Reports no additional cardiovascular complaints Respiratory: Respiratory: Reports as per HPI, Reports no additional respiratory complaints and Reports cough Gastrointestinal: Gastrointestinal: Reports as per HPI and Reports no additional gastrointestinal complaints Genitourinary: Genitourinary: Reports no additional female genitourinary complaints Musculoskeletal: Musculoskeletal: Reports no additional musculoskeletal complaints Comments: pain right medial knee Integumentary/Breasts: Skin/Breast: Reports system reviewed and no additional complaints, except as docu and Reports as per HPI Neurologic: Reports system reviewed and no additional complaints, except as documented and Reports as per HPI Psychiatric: Psychiatric: Reports no additional psychiatric complaints and Reports as per HPI Endocrine: Endocrine: Reports no additional endocrine complaints and Reports as per HPI Hematologic/Lymphatic: Hematologic/Lymphatic: Reports no additional hematologic/lymphatic complaints and Reports as per HPI Allergic/Immunologic: Allergic/Immunologic: Reports no additional allergic/immunologic complaints and Reports as per HPI PMF Past Medical History Medical History (Reviewed 02/27/23
== END 2023-02-27 17:10 | disposition home or self-care (01) ==
PROVIDERS: Emergency Provider Internal Medicine Critical Care Medicine
DX: U07.1 COVID-19 (principal); J06.9 Acute upper respiratory infection, unspecified; M70.51 Other bursitis of knee, right knee; Z85.3 Personal history of malignant neoplasm of breast
CPT/HCPCS: 99281

== ENCOUNTER 2023-11-10 18:50 | Emergency (ER) | payer BC, SELFPAY ==
--- NOTE | ~2023-11-10 | CT_ITS ---
EXAMINATION: CT abdomen pelvis wo con DATE: 11/10/2023 21:04 INDICATION: Rectal and left lower quadrant abdominal pain for one day TECHNIQUE: Computed tomography (CT) of the abdomen and pelvis was performed without intravenous contr ast. Automated exposure control and iterative reconstruction technique were employed. Exam dose: 104 1.76 mGy-cm total exam DLP. COMPARISON: 12/20/2022 CT abdomen pelvis FINDINGS: The lung bases are clear of infiltrate or consolidation. Normal heart size. No pericardial or pleural effusion. Bilateral breast implants. There is diffuse hepatic steatosis with minimal sparing around the gallbladder. No hepatic space-occu pying mass lesion. The gallbladder is unremarkable. No bile duct or pancreatic duct dilatation. No pancreatic mass lesio n or calcification. Normal splenic size. Normal morphology of the adrenal glands. No renal mass lesion or urinary tract calculus or hydroureteronephrosis. The urinary bladder structures are not optimally visualized due to extensive streak artifact from panda ateral total hip joint replacements. Small sliding hiatal hernia. No CT evidence of appendicitis. Minimal colonic diverticulosis; no CT evidence of diverticulitis. No bowel obstruction, bowel wall thickening, pneumatosis or intraperitoneal free air. Normal caliber of the abdominal aorta. No intraperitoneal or retroperitoneal or pelvic mass lesion or adenopathy or ascites. No suspicious osteolytic or osteoblastic lesion is noted. IMPRESSION: Bilateral breast implants Hepatic steatosis Small sliding hiatal hernia Mild colonic diverticulosis; no evidence of diverticulitis Reviewed, dictated and finalized at [facility]. Reviewed, dictated and finalized at location A.
[2023-11-10 18:50] VITALS: BP 147/66; PULSE 123; RESP 18; TEMP 37.6; O2SAT 97
[2023-11-10 19:49] LABS: Occult Blood Negative (Negative)
[2023-11-10 19:55] LABS: Add Urine Microscopic? YES; Appearance Urine Clear (Clear); Bilirubin Urine Negative (Negative); Blood Urine Negative (Negative); Color Urine Light Yellow (Yellow); Glucose Urine UA Negative (Negative); Ketones Urine Negative (Negative); Leukocyte Esterase Ur Trace LEU/UL (Negative); Nitrate Urine Negative (Negative); Protein Urine Negative (Negative); Urobilinogen Urine 0.2 mg/dL (0.2-1.0); pH Urine 6.5 (5.0-8.0)
[2023-11-10 19:56] LABS: WBC Urine None seen /hpf (0-3)
[2023-11-10] MEDS: fentaNYL CITRATE INJ (*CRX) 100 MCG/2 ML VIAL 50 MCG IM (20:33)
[2023-11-10 20:47] LABS: Hematocrit 40.4 % (35.0-49.0); Hemoglobin 12.5 g/dL (12.0-15.0); Mean Corpuscular HGB Conc 30.9 g/dL (32-36); Mean Corpuscular Hemoglobin 29.2 pg (27.0-31.0); Mean Corpuscular Volume 94.4 fL (78.0-102.0); Mean Platelet Volume 9.3 fl (9.2-11.8); Platelet Count Result 239 K/mm3 (150-420); Red Blood Count 4.28 M/mm3 (4.20-5.40); Red Cell Distribution Width 13.2 % (11.6-14.4); White Blood Count 11.3 K/mm3 (4.8-10.8)
[2023-11-10 21:10] LABS: Alanine Aminotransferase 53 U/L (14-59); Albumin Level 3.8 g/dL (3.4-5.0); Alkaline Phosphatase 112 U/L (46-116); Anion Gap 11 mmol/L (4-12); Aspartate Amino Transferase 27 U/L (15-37); Bilirubin,Total 0.6 mg/dL (0.00-1.00); Blood Urea Nitrogen 7 mg/dL (7-18); Calcium 8.4 mg/dL (8.5-10.1); Carbon Dioxide 26 mmol/L (21-32); Chloride 101 mmol/L (98-108); Estimated CRCL calculation 78 ml/min; Estimated Glomerular Filt Rate > 60; Glucose 111 mg/dL (70-99); Lipase 36 U/L (16-77); Osmolality Calculated 285 mOsm/kg (285-295); Potassium 3.5 mmol/L (3.5-5.1); Sodium 138 mmol/L (136-145); Total Protein 7.1 g/dL (6.4-8.2)
[2023-11-10 21:20] VITALS: BP 135/69; PULSE 75; RESP 18; O2SAT 97
--- NOTE | 2023-11-10 21:50 | ED.GENADULT ---
HPI - General Adult General Chief complaint: Abdominal Pain Stated complaint: CONSTIPATION Source: patient and family Mode of arrival: ambulatory Limitations: no limitations History of Present Illness HPI narrative: 43-year-old white female complained of left lower quadrant abdominal pain. She had a bowel movement yesterday but not today. She normally has a bowel movement every day. She says it hurts to sit on her butt and feels better if she lays on her left side. She did take a warm bath that she thinks might have ate feel better. She has recently been dieting and watching what she is eating and has decreased her fluid intake. Denies any nausea vomiting blood in her stool. Denies any constipation fever she said she felt warm her temperature was 99.5?. Denies any cough runny nose sore throat dizziness. She thought her hands were a little swollen for the last couple days. She said her heart rates been running high 115. She does have a history of sinus tachycardia since her breast cancer surgery and is on metoprolol for this. denies any other complaints. Past medical history breast cancer hysterectomy pneumonia bilateral hip replacement from avascular necrosis from chemo pneumothorax. patient had diverticulitis a year ago she thinks it might be this Family history father of diverticulitis Related Data Home Medications Medication Instructions Recorded Confirmed metoprolol succinate 50 mg 50 mg PO HS 12/18/22 11/10/23 tablet,extended release 24 hr pantoprazole 40 mg tablet,delayed 40 mg PO QAM 12/18/22 11/10/23 release cholecalciferol (vitamin D3) 50 50 mcg PO DAILY 12/20/22 11/10/23 mcg (2,000 unit) capsule Allergies Allergy/AdvReac Type Severity Reaction Status Date / Time acetaminophen [From Percocet] Allergy Itching Verified 02/09/23 07:06 amoxicillin Allergy Hives Verified 02/09/23 07:06 azithromycin [From Zithromax] Allergy Other Verified 02/09/23 07:06 cefuroxime Allergy Rash Verified 02/09/23 07:06 clindamycin Allergy Rash Verified 02/09/23 07:06 oxycodone [From Percocet] Allergy Itching Verified 02/09/23 07:06 Sulfa (Sulfonamide Allergy Swelling Verified 02/09/23 07:06 Antibiotics) of Lip/Tongue/Throat sulfamethoxazole Allergy Swelling Verified 02/09/23 07:06 [From of Sulfamethoxazole-Trimethoprim] Lip/Tongue/Throat trimethoprim Allergy Swelling Verified 02/09/23 07:06 [From of Sulfamethoxazole-Trimethoprim] Lip/Tongue/Throat Review of Systems Review of Systems: All systems reviewed & are unremarkable except as noted in HPI and below PMFSH Past Medical History Medical History Asthma exacerbation in COPD History of breast cancer Tachycardia Social History Social History Social History: nonsmoker Exam Narrative: White female patient with Mild distress and prefers To lay her left side..? Head normocephalic, atraumatic.? Eyes conjunctiva pink sclera nonicteric.? Extraocular movements are intact.? Ears externally normal.? Oropharynx is clear with moist mucous membranes without exudates.? Neck is supple nontender no lymphadenopathy.? Back is nontender.? Lungs are clear.? Heart is regular rate and rhythm without murmurs gallops or rubs.? Chest wall nontender. Abdomen is soft and mild tenderness left lower quadrant without rebound or peritoneal signs. No hepatosplenomegaly or masses no CVA tenderness no abdominal bruits.? rectal exam showed normal sphincter tone. No masses small amount stool in the rectal vault but not impacted. Negative occult blood. She has a slight hint of possible hemorrhoids externally. Extremities no cyanosis clubbing or edema.? Skin is warm and dry without rashes or lesions.? Neurological patient is alert and oriented x4.? Motor and sensory grossly intact.? Gait is normal. Course Vital Signs Vital signs:
[2023-11-10 22:21] VITALS: BP 125/68; PULSE 80; RESP 18; TEMP 36.9; O2SAT 99
== END 2023-11-10 22:21 | disposition home or self-care (01) ==
PROVIDERS: Emergency Provider Emergency Medicine
DX: R10.31 Right lower quadrant pain (principal); Z79.899 Other long term (current) drug therapy; Z85.3 Personal history of malignant neoplasm of breast
CPT/HCPCS: 36415; 74176; 80053; 81001; 82272; 83690; 85027; 96372; 99284; J3010